=== PATIENT | female | born 1930 | race Asian ===

== ENCOUNTER → 2017-02-01 | Outpatient (CLI) | payer MEDICARE, BC ==
[~2017-02-01] MED LIST: BENAZEPRIL PO; CALCIUM 500 + D1 TAB PO; CALCIUM CARBON600 M1 PO; CERTAGEN PO; CIPRO PO; DIAZEPAM PO; DICLOFENAC PO; DOXEPIN PO; FISH OIL 1,0001 CA2 PO; FISH OIL 1,0001 CAP PO; FLOMAX0.4 M1 PO; FOLIC ACID PO; HCTZ PO; LIPITOR PO; LISINOPRIL-HCTZ1 T14 PO; LOTREL 10/20 MG1 CAP PO; METOPROLOL SUCC50 MG PO; MOBIC PO; NORVASC PO; OMEPRAZOLE20 M1 PO; PROTONIX PO; SIMVASTATIN80 MG PO; TRAMADOL HCL50 M1 PO; VIT B-12 PO; VIT E PO; VITAMIN A; VITAMIN B; VITAMIN B12-FO1 EACH PO; VITAMIN C PO; VITAMIN D 4001 UDTAB PO
--- NOTE | ~2017-02-01 | MY29 ---
[facility] A Service of [facility] RADIOLOGY TEXT RESULTS PATIENT: IVANIA GOMES LOCATION: [facility] : 34 UNIT #: [id number] AGE: [address]: Lake Khan MD SEX: F ORDER DR: [id number] [facility] [address] [facility] [place], [place] [address] [id number] O MR#: [id number] Acc #: [id number] NAME: IAVNIA GOMES. : 1930 SEX: F STUDY DATE/TIME: 02/01/2017 8:30 UNIT: [facility] ROOM: STUDY DESCRIPTION: [facility] SCREENING W/ CAD BILAT Attending Physician: Lake Khan M.D. Referring Physician: Lake Khan M.D. Ordering Physician: Lake Khan M.D. Primary Care Physician: Lake Khan M.D. MEDICAL IMAGING REPORT This report is preliminary unless electronic signature is present EXAMINATION Bilateral digital screening mammogram with CAD. DATE 02/01/2017 HISTORY No personal or family history of breast cancer, or current complaints. COMPARISON Bilateral screening mammogram 01/19/2016, 12/30/2014, and 12/29/2012. FINDINGS CC and MLO views were obtained of each breast utilizing digital technique and reviewed with an FDA-approved CAD device. Heterogeneously dense fibroglandular tissue is present bilaterally which can limit sensitivity of mammography. The parenchymal pattern appears stable. No new or suspicious nodule, architectural distortion or clustered microcalcification is seen. IMPRESSION 1. BIRADS 2. Benign findings. Routine bilateral screening mammogram is recommended in one year. Patients over the age of 40 are entered into a reminder system with target due date for the next mammogram. A result letter will also be sent to the patient. BIRADS: 2 Benign findings. Dictated by... [facility] A Service of [facility] RADIOLOGY TEXT RESULTS PATIENT: IVANIA GOMES LOCATION: [facility] : 34 UNIT #: [id number] AGE: [address]: Lake Khan MD SEX: F ORDER DR: Ingrid Barton M.D. THIS IS AN ELECTRONICALLY VERIFIED REPORT Ingrid Barton M.D. at 02/06/2017 3:26 PM MIC/hilario TD: 02/01/2017 17:36 JOB #: [id number] MEDICAL IMAGING REPORT Page 1 of 1 COPY
== END | disposition home or self-care (01) ==
LOC: CWCC 07:58
DX: Z12.31 Encounter for screening mammogram for malignant neoplasm of breast (principal)
CPT/HCPCS: G0202